=== PATIENT | female | born 1955 | race African-American/Black ===

== ENCOUNTER 2019-10-25 21:48 | Inpatient (IN) | payer OTHER ==
[~2019-10-25] VITALS: Ht 157.5 cm; Wt 49.5 kg
[~2019-10-25 21:48] MED LIST: CIPROFLOXACIN500 M1 PO; DARVOCET-N 1001 EACH PO; FLEXERIL PO; MEDROLDOSEPACK PO; NOHOMEMEDICATIONS; NORCO 5-325 TA1 EACH PO; ZPAK PO
[2019-10-25 21:49] VITALS: BP 115/67
[2019-10-25 22:30] LABS: ABSOLUTE NEUTROPHILS 11.7 thou/uL (1.4-8.2); BASOPHILS 0.7 % (0.0-2.0); EOSINOPHILS 1.4 % (0.0-3.0); HEMATOCRIT 36.3 % (37.0-47.0); HEMOGLOBIN 11.3 gm/dL (12.0-15.0); LYMPHOCYTES 13.9 % (24.0-44.0); MCH 23.5 pg (26.0-34.0); MCHC 31.2 g/dL (28.0-37.0); MCV 75.3 fL (80.0-100.0); MONOCYTES 8.5 % (1.0-8.0); PLATELET COUNT 399 thou/uL (150-400); POLYS 75.5 % (36.0-66.0); RBC 4.82 mil/uL (4.20-5.00); RDW 19.1 % (10.5-14.5); WBC 15.5 thou/uL (4.0-11.0)
[2019-10-25 22:39] LABS: CALCIUM 8.6 mg/dL (8.5-10.1); CREATININE 2.5 mg/dL (0.6-1.0); POTASSIUM 3.2 mmol/L (3.5-5.1)
[2019-10-25 22:49] LABS: ALBUMIN 3.4 g/dL (3.4-5.0); TOTAL BILIRUBIN 0.4 mg/dL (0.2-1.0); TOTAL PROTEIN 8.3 g/dL (6.4-8.2); TROPONIN-I 0.06 ng/mL (<0.06)
[2019-10-26] VITALS (8 sets, daily range): BP systolic 119–149; BP diastolic 75–99
[2019-10-26] MEDS ORDERED: TOPROL XL25 MG PO (01:19)
[2019-10-26] MEDS ORDERED: FUROSEMIDE 40 M40 M1 PO (01:20)
[2019-10-26] MEDS ORDERED: MEGESTROL ACETA40 MG PO (01:21)
[2019-10-26] MEDS ORDERED: OXYCONTIN15 MG PO (01:22)
[2019-10-26 07:02] LABS: HEMATOCRIT 32.8 % (37.0-47.0); HEMOGLOBIN 10.1 gm/dL (12.0-15.0); MCH 23.1 pg (26.0-34.0); MCHC 30.7 g/dL (28.0-37.0); MCV 75.4 fL (80.0-100.0); RBC 4.36 mil/uL (4.20-5.00); RDW 18.8 % (10.5-14.5); WBC 11.8 thou/uL (4.0-11.0)
[2019-10-26 07:15] LABS: ANION GAP 16 mmol/L (7-16); BUN 29 mg/dL (7-18); CALCIUM 8.1 mg/dL (8.5-10.1); CHLORIDE 105 mmol/L (98-107); CO2 17 mmol/L (21-32); GLUCOSE 152 mg/dL (74-106); POTASSIUM 3.9 mmol/L (3.5-5.1); SODIUM 138 mmol/L (136-145); TROPONIN-I 0.07 ng/mL (<0.06)
[2019-10-26 07:28] LABS: CHOLESTEROL 115 mg/dL (<200); HDL CHOLESTEROL 33 mg/dL (>40); LDL CHOLESTEROL 67 mg/dL (<100); TC:HDL 3.5 Ratio (Not establshd); TRIGLYCERIDE 76 mg/dL (<150); VLDL 15 mg/dL (<40)
--- NOTE | 2019-10-26 07:42 | NUR ---
PATIENT CARE WERE ASSUMED AFTER A TRANSFER FROM ED. PATIENT WAS ASSED AND MED REC DONE TO THE BEST OF PATIENTS ABILITY. DAUGHTER IS TO DROP OFF MED LIST TODAY. MS LIGHT SENT FOR MED RECORDS FROM [facility]. WERE THIS PATIENT GETS CHEMO FROM DR. DEEPTI BARRIGA. HOURLY ROUNDS WERE DONE, THE BED IS IN A LOW AND LOCKED POSITION,
--- NOTE | 2019-10-26 08:47 | EKG ---
[facility] [place] [address] ELECTROCARDIOGRAM REPORT Name: TIM LOPEZ Room #: 212- ADM IN M.R.#: [id number] Admission: 10/26/19 Attend Phys: Darin Leija MD Discharge: Date of : 51 Report #: [id number] THIS REPORT FOR: cc: CORDELL Bentley family physician/PCP CORDELL - Sheree family physician/PCP Yoel Mohan MD [facility] THIS REPORT FOR: //name// [facility] ED Test Date: 2019-10-25 Test Time: 22:05:43 Pat Name: TIM LOPEZ Department: Room: [facility] Gender: F Day Care Aide: : 1955 Requested By: Cheko Tinajero Order Number: [id number] MD: Yoel Mohan Measurements Intervals [place] Rate: 136 P: [place]: QRS: 79 QRSD: 77 T: 264 QT: 302 QTc: 455 Interpretive Statements Atrial fibrillation Paired ventricular premature complexes Diffuse ST segment abnormality Compared to ECG 07/30/2015 13:48:20 Ventricular premature complex(es) now present ST segment abnormality is now present Sinus rhythm no longer present Electronically Signed On 10-26-2019 8:46:28 CDT by Yoel Mohan [email or web address] <ELECTRONICALLY SIGNED> By: Yoel Mohan MD, [facility] 10/26/1948 04 04 Yoel Mohan MD, [facility] /EPI
--- NOTE | 2019-10-26 08:50 | EKG ---
[facility] [place] [address] ELECTROCARDIOGRAM REPORT Name: TIM LOPEZ Room #: 212- ADM IN M.R.#: [id number] Admission: 10/26/19 Attend Phys: Darin Leija MD Discharge: Date of : 51 Report #: [id number] THIS REPORT FOR: cc: CORDELL - Sheree family physician/PCP CORDELL - No family physician/PCP Yoel Mohan MD [facility] THIS REPORT FOR: //name// [facility] Test Date: 2019-10-26 Test Time: 07:59:44 Pat Name: TIM LOPEZ Department: Room: 212 Gender: F Security Program Manager: Karissa FAULKNER : 1955 Requested By: Ami Tong Order Number: [id number] MD: Yoel Mohan Measurements Intervals [place] Rate: 100 P: [place]: QRS: 76 QRSD: 92 T: -4 QT: 357 QTc: 461 Interpretive Statements Atrial fibrillation Compared to ECG 07/30/2015 13:48:20 Heart rate has slowed Electronically Signed On 10-26-2019 8:49:21 CDT by Yoel Mohan [email or web address] <ELECTRONICALLY SIGNED> By: Yoel Mohan MD, [facility] 10/26/19 0849 [id number] [id number] Yoel Mohan MD, [facility] /EPI
[2019-10-26] MEDS ORDERED: MORPHINE 110 MG/1 ML PO (11:32)
--- NOTE | 2019-10-26 11:35 | 2DMMODE ---
[facility] [place] [address] 2 D/M-MODE ECHOCARDIOGRAM Name: TIM LOPEZ Room #: 212-P ADM IN M.R.#: [id number] Admission: 10/26/19 Attend Phys: Darin Leija MD Discharge: Date of : 51 Report #: [id number] THIS REPORT FOR: cc: FAM - No family physician/PCP FAM - No family physician/PCP Kehinde Jorge MD ~ APPROVED REPORT Study performed: 10/26/2019 09:29:42 EXAM: Comprehensive 2D, Doppler, and color-flow Echocardiogram Patient Location: Bedside Room #: 212 Status: routine BSA: 1.34 HR: 90 bpm BP: 137/96 mmHg Rhythm: Atrial Fibrillation Other Information Study Quality: Good Indications Aortic Valve Disease Mitral Valve Disease Atrial Fibrillation 2D Dimensions RVDd: 50.02 mm IVSd: 7.44 (7-11mm) LVOT Diam: 14.52 (18-24mm) LVDd: 34.75 mm PWd: 7.26 (7-11mm) Ascending Ao: 28.59 (22-36mm) LVDs: 24.85 (25-40mm) Aortic Root: 25.23 mm IVC: 23.00 mm Volumes Left Atrial Volume (Systole) Single Plane 4CH: 55.23 mL Single Plane 2CH: 37.61 mL LA ESV Index: 38.00 mL/m2 Aortic Valve AoV Peak Leonardo.: 1.65 m/s AO Peak Gr.: 10.93 mmHg LVOT Max P.96 mmHg LVOT Max V: 1.32 m/s [facility] [address] [address] 2 D/M-MODE ECHOCARDIOGRAM Name: TIM LOPEZ Room #: 212-P [facility] IN .#: [id number] Admission: 10/26/19 Attend Phys: Darin Leija MD Discharge: Date of : 51 Report #: [id number] Vmax: 1.32 cm2 AI Vmax: 4.43 m/s AI Hanson: 2.01 m/s2 AI PHT: 638.77 ms Mitral Valve MV Peak Gr.: 22.73 mmHg MV Mean Gr.: 11.16 mmHg MV Max Leonardo.: 2.38 m/s MV Mean Leonardo.: 1.60 m/s MV VTI: 878.97 mm Pulmonary Valve PV Peak Leonardo.: 1.15 m/s PV Peak Gr.: 5.35 mmHg Tricuspid Valve TR Peak Leonardo.: 3.81 m/s TR Peak Gr.: 58.39 mmHg PA Pressure: 68.00 mmHg Left Ventricle The left ventricle is normal size. There is normal LV segmental wall motion. There is normal left ventricular wall thickness. The left ventricular systolic function is normal. The left ventricular ejection fraction is within the normal range. LVEF is 60%. This study is not technically sufficient to allow evaluation of the LV diastolic function due to atrial fibrillation. Right Ventricle Right ventricle is dilated. Right ventricular systolic function is grossly normal. Atria Left atrium is dilated. Right atrium is dilated. Aortic Valve The aortic valve is normal in structure. The Aortic valve is sclerotic. Mild to moderate aortic regurgitation. There is no aortic valvular stenosis. Mitral Valve The mitral valve is normal in structure. Mild to moderate mitral regurgitation. Severe mitral stenosis. Tricuspid Valve The tricuspid valve is normal in structure. There is moderate to [facility] [address] [place] [address] 2 D/M-MODE ECHOCARDIOGRAM Name: JOHNTIM Room #: 212-P [facility] IN ..#: [id number] Admission: 10/26/19 Attend Phys: Darin Leija MD Discharge: Date of : 51 Report #: [id number] severe tricuspid regurgitation. Estimated PAP 68 mmHg. There is moderate-severe pulmonary hypertension. Pulmonic Valve The pulmonary valve is normal in structure. Trace pulmonic regurgitation. Great Vessels The aortic root is normal in size. IVC is dilated and collapses <50% with inspiration. Pericardium There is no pericardial effusion. <Conclusion> The left ventricle is normal size. There is normal left ventricular wall thickness. The left ventricular systolic function is normal. Right ventricle is dilated. Left atrium is dilated. Right atrium is dilated. Mild to moderate aortic regurgitation. Severe mitral stenosis. There is moderate to severe tricuspid regurgitation. Estimated PAP 68 mmHg. <ELECTRONICALLY SIGNED> By: Kehinde Jorge MD 10/26/19 1134 1134 1134 Kehinde Jorge MD /INF
[2019-10-26 15:51] LABS: % SATURATION 6 % (20-39); IRON 26 ug/dL (50-170); TIBC 441 ug/dL (250-450)
--- NOTE | 2019-10-26 20:37 | NUR ---
RECEIVED PT'S CARE AROUND 0735; PT. ON BED; ALERT; DURING AM ASSESSMENT AOX4; FORGETFUL; C/O ABDOMINAL PAIN; NO PRN PAIN MEDICATION DUE; PHYSICIAN NOTIFIED; NO NEW ORDERS; NOTICED NO GI CONSULT ON PLACED; PHYSICIAN NOTIFIED; PT. C/O NAUSEA & VOMITING AFTER AM PO MEDICATION GIVEN; PO MEDICATION NOTICED ON THE VOMINITING; PRN ANTI-NAUSEA GIVEN & PO METOPROLOL GIVEN AGAIN; PT. ABLE TO TOLERATED IT; DURING LUNCH AFTER HAVING SOME CHICKEN BROTH PT. VOMITED; GI NOTIFIED; PRN MEDICATION GIVEN; EDUCATED ABOUT STOOL & URINE SAMPLE; ST. UNDERSTANDING; INCONTINENT OF URINE; NO HAD BM THROUGH THE DAY; BLADDER SCANN SHOWED 30 ML; MONITORING; ASSESSMENT CHARGED; FOLLOWING POC; ISOLATION SET UP & MANTAINED; AFIB ON THE MONITOR; CARDIZEM GTT TITATRE PER PROTOCOL; ELEVATED HR WITH EXERTION; ASSESSMENT CHARGED; FOLLOWING POC;
[2019-10-27 04:56] VITALS: BP 146/69
[2019-10-27 04:58] VITALS: BP 146/69
[2019-10-27 05:05] LABS: HEMATOCRIT 28.8 % (37.0-47.0); HEMOGLOBIN 8.8 gm/dL (12.0-15.0); MCH 23.1 pg (26.0-34.0); MCHC 30.5 g/dL (28.0-37.0); MCV 75.7 fL (80.0-100.0); RBC 3.8 mil/uL (4.20-5.00); RDW 19.1 % (10.5-14.5); WBC 20.2 thou/uL (4.0-11.0)
[2019-10-27 05:26] LABS: CALCIUM 7.7 mg/dL (8.5-10.1); CREATININE 1.5 mg/dL (0.6-1.0); POTASSIUM 3.7 mmol/L (3.5-5.1)
[2019-10-27 05:27] LABS: CHOLESTEROL 90 mg/dL (<200); HDL CHOLESTEROL 38 mg/dL (>40); LDL CHOLESTEROL 42 mg/dL (<100); TC:HDL 2.4 Ratio (Not establshd); TRIGLYCERIDE 53 mg/dL (<150); TROPONIN-I <0.06 ng/mL (<0.06); VLDL 11 mg/dL (<40)
[2019-10-27 05:47] LABS: SERUM ASSESSMENT Clear
--- NOTE | 2019-10-27 06:46 | NUR ---
PATIENTS CARES WERE ASSUMED AT SHIFT CHANGE. PATIENT WAS ASSESSED AND MEDS WERE PASSED. PATIENT A BIT LESS PAINFUL THIS SHIFT THAN LAST. NO STOOL THIS SHIFT. SHE WAS INCONTINENT TWICE. PATIENT IS A WATER DRINKER. WATER FILLED TWICE THIS SHIFT. HOURLY ROUNDS WERE DONE. THE BED IS IN A LOW AND LOCKED POSITION
[2019-10-27 08:00] VITALS: BP 117/78
[2019-10-27 12:00] VITALS: BP 109/77
--- NOTE | 2019-10-27 16:30 | NUR ---
Spoke with with dtr at bedside. SHe reports her mom lives with family in independent home. Her brother resides with patient. Patient independent with ambulation. Patients sister visit and cook and assist patient as needed. She has caregiver support via [facility] 7 days a week 2.5 hours a day. PCP out of [place] but cannot recall PCP name. Patient has supportive care with family. [facility] following for dc planning.
[2019-10-27 16:45] VITALS: BP 107/70
[2019-10-27 20:18] VITALS: BP 100/43
--- NOTE | 2019-10-27 21:20 | NUR ---
RECEIVED PT'S CARE AROUND 0735; PT. ON BED; ALERT; DURING AM ASSESSMENT PT. AOX4; FORGETFUL; C/O PAIN; PRN PAIN MEDICATION GIVEN WITH AM MEDICATIONS; PRN ANTI-NAUSE MEDICATION GIVEN BEFORE PO MEDICATIONS; NO C/O NAUSE OR VOMITING; AFIB ON THE MONITOR CARDIZEM GTT AT 5 ML/H; ENTERPRISE ARCHITECT MANAGER MIXING PICKER TENDER NOTIFIED; ORDERS ON PLACED; PAIN RE-ASSESSMENT ST. NO DECREASE PAIN; PT. LOOKING TENSE & ON FETUS POSITION; PHYSICIAN ON THE FLOOR; NOTIFIED; ORDERS ON PLACED; RE-ASSESSMENT PT. RESTING WITH EYES CLOSED; NO ABLE TO HAVE A BM SINCE ADMISSION; PHYSICIANS NOTIFIED; D/C ISOLATION; SUPPOSITORY ORDERED; GIVEN; NO BM THROUGH THE DAY; C/O BACK PAIN SUDDENLY; FROWN & ON FETUS POSITION; ST. "PLEASE GIVE ME SOMETHING"; PRN PAIN MEDICATION GIVEN; RE- ASSESSMENT PT. ST. DECREASE PAIN; AFTER AROUND ONE HOUR C/O BACK PAIN; NO DUE PRN PAIN MEDICATION; UA NOT COLLECTED ON ER; PHYSICIAN NOTIFIED; ORDERS RECEIVED; ONE TIME PRN PAIN MEDICATION GIVEN; GONE FOR CT; STRAIGH CATH PERFORMED NO URINE RETURNED; PHYSICIAN NOTIFIED; ORDERS RECEIVED; HARRIS INSERTED; NO URINE RETURNED; PHYSICIAN NOTIFIED; PER PHYSICIAN HAD A SECUNDARY NURSE CHECK HARRIS PLACEMENT; SECUNDARY ASSESSMENT PERFORMED; PER SECUNDARY RN HARRIS ON PLACED; US RENAL ON PLACED; PT. GONE FOR PROCEDURE; PER US HARRIS ON PLACED; PRN PAIN MEDICATION GIVEN WHEN RETURNED AT ROOM; DAUGHTER AT THE BED SIDE; CLOSE TO 1800 PT. C/O ABDOMINAL PAIN AFTER HAVING SMALL BITE OF DINNER; PRN MEDICATION NOT DUE; PT. GRIMACING; CRYING; GI PHYSICIAN PAGED X1; NO CALLED BACK; DR. WILLIAMSON PAGED X2; NO CALLED BACK; CONTACTED JOSE MARIA MIXING PICKER TENDER; NOTIFIED ABOUT SITUATION; ORDERS ON PLACED; NEW PRN PAIN MEDICATION GIVEN; INCREASE FLUIDS RATE; REGLAN GIVEN & PEPSID GIVEN; DAUGHTER AT THE BED SIDE AT SHIFT CHANGED; UPDATED; PT. RESTING;
[2019-10-28 08:00] VITALS: BP 85/48
[2019-10-28 11:05] LABS: URINE BLOOD 3+ (Negative); URINE CLARITY CLOUDY; URINE COLOR BROWN; URINE GLUCOSE-RANDOM* NEGATIVE (Negative); URINE KETONES NEGATIVE (Negative); URINE LEUKOCYTES-REFLEX TRACE (Negative); URINE PROTEIN (DIPSTICK) 3+ (Negative); URINE SPECIFIC GRAVITY >= 1.030 (1.005-1.035); URINE UROBILINOGEN 0.2 E.U./dl (0.2-1.0)
[2019-10-28 11:07] LABS: URINE NITRITE-REFLEX POSITIVE (Negative)
[2019-10-28 11:10] LABS: ICTOTEST (BILI CONFIRMATORY) Negative (Negative); URINE BILIRUBIN NEGATIVE (Negative)
[2019-10-28 11:19] VITALS: BP 90/48
[2019-10-28 13:16] LABS: URINE RBC >20 Many /HPF (0-2)
[2019-10-28 13:18] LABS: BACTERIA-REFLEX 1-9 Few /HPF (None Seen); CASTS None Seen /LPF (None Seen); CRYSTALS None Seen /LPF (None Seen); SQUAMOUS 4-10 Moderate /LPF (0-3)
[2019-10-28 13:19] LABS: YEAST-REFLEX Present (None Seen)
[2019-10-28 13:20] LABS: URINE WBC-REFLEX 6-15 Few /HPF (0-5)
[2019-10-28 15:42] LABS: CALCIUM 7.5 mg/dL (8.5-10.1); CREATININE 1.9 mg/dL (0.6-1.0); POTASSIUM 4.3 mmol/L (3.5-5.1)
[2019-10-28 16:27] VITALS: BP 109/72
--- NOTE | 2019-10-28 17:08 | NUR ---
PT CARE ASSUMED APPROX 0700. ASSESSMENTS CHARTED. PT DENIES SOA. REPORTS ADEQUATTE PAIN MANAGEMENT TO MID ABD. BLADDER SCANNED WITH ZERO IN BLADDER. HARRIS PATENT. URINE OUTPUT VERY POOR. DRs AWARE. CT ABD REVEALED ABNORMALITIES. DRs AWARE AND NEW CONSULTS MADE. CLINICAL UPDATE GIVEN TO PT'S DAUGHTER. SHE IS AT THE BEDSIDE AT THIS TIME. PT UP WITH MIN ASSIST. VSS. NO DISTRESS NOTED.
[2019-10-28 20:11] VITALS: BP 92/60
[2019-10-28 23:19] VITALS: BP 104/69
[2019-10-29 04:21] VITALS: BP 117/51
--- NOTE | 2019-10-29 05:01 | NUR ---
ASSUMED CARE OF PATIENT AT 1900. DURING ASSESSMENT PATIENT ABDOMEN TENDER. SLIGHTEST TOUCH TO ABDOMEN MADE PATIENT WINCE. ADMINISTERED PRN DILAUDID ORDERED. PATIENT REPORTED PARTIAL PAIN RELIEF. PATIENT WAS RESTLESS THROUGHOUT NOC. BED ALARM SET OFF SEVERAL TIMES TO FIND PATIENT SITTING ON SIDE OF BED. PATIENT CONFUSED, RESTLESS AND HAD TO BE REORIENTED TO SURROUNDINGS. BURSTS OF TACHYCARDIA NOTED WITH ACTIVITY. REPLACED HARRIS CATHETER DUE TO LEAKING. PATIENT DID HAVE URINE OUTPUT THIS SHIFT WITH INCONTINENCE X2 AND APPROXIMATELY 50 CC FROM HARRIS. PATIENT PROGRESSING SLOWLY TOWARDS GOALS.
[2019-10-29 05:35] LABS: HEMATOCRIT 26.7 % (37.0-47.0); HEMOGLOBIN 8.2 gm/dL (12.0-15.0); MCH 23.2 pg (26.0-34.0); MCHC 30.6 g/dL (28.0-37.0); MCV 75.8 fL (80.0-100.0); RBC 3.52 mil/uL (4.20-5.00); RDW 19.4 % (10.5-14.5); WBC 16.7 thou/uL (4.0-11.0)
[2019-10-29 05:50] LABS: CALCIUM 7.4 mg/dL (8.5-10.1); CREATININE 1.8 mg/dL (0.6-1.0); POTASSIUM 3.4 mmol/L (3.5-5.1)
[2019-10-29 07:27] VITALS: BP 104/57
[2019-10-29 11:35] VITALS: BP 130/83
--- NOTE | 2019-10-29 14:24 | NUR ---
Case discussed with the attending. Dr. Heard consulted to discuss goals of care and code status with the pt and her family. Pt has children and siblings who are very involved. The attending has talked with the pt's dtr regarding her prognosis and advanced cancer. Pt is a full code. Will follow for recommendations from Dr. Heard for possible hospice referral.
--- NOTE | 2019-10-29 16:44 | NUR ---
PT CARE ASSUMED APPROX 0700. ASSESSMENTS CHARTED. PT DENIES SOA. REPORTS 10/ ABD PAIN THIS SHIFT. PAIN MEDS MANAGING PAIN PER PT REPORT. HOSPICE DR CONSULTED. FAMILY AT BEDSIDE FOR HOSPICE EDUCATION. PT'SDAUGHTER AND SON BOTH DENIED QUESTIONS AND CONCERNS REGARDING PT'S POC. NS BOLUSES GIVEN PER ORDER. PT TOLERATING POC. REFUSING TURNS. PT REPORTS THAT SHE "ONLY WANTS TO SLEEP." PT'S DAUGHTER AT BEDSIDE FOR ALL REQUESTS TO TURN PT AND EDUCATION REGARDING NOT TURNING. CLINICAL UPDATE ALSO GIVEN TO PT'S SISTER ON THE PHONE. SHE DENIES QUESTIONS WELL AFTER UPDATE. NO DISTRESS NOTED.
[2019-10-29 17:51] VITALS: BP 89/59
[2019-10-29 19:34] VITALS: BP 120/92
[2019-10-29 20:12] VITALS: BP 131/74
[2019-10-30 04:49] VITALS: BP 123/70
--- NOTE | 2019-10-30 05:20 | NUR ---
ASSUMED CARE OF PATIENT AT 1900. PATIENT REPORTED PAIN AND TENDERNESS IN LOWER ABDOMEN AT ASSESSMENT. ADMINISTERED PRN DILUADID ORDERED. PATIENT SLEPT SPORADICALLY THROUGHOUT NIGHT. PATIENT APPEARED ANXIOUS. DURING ONE EPISODE PATIENT WAS TACHYPNEIC, RESTLESS, AND CONFUSED. PATIENT STATED SHE WAS HAVING A HARD TIME GETTING COMFORTABLE. OXYGEN SATURATION WAS 95%. VSS. ATTEMPTED TO REORIENT PATIENT TO SURROUNDINGS AND REPOSTITIONED PATIENT MULTIPLE TIMES. PATIENT FINALLY APPEARED TO BE RESTING AFTER PAIN MEDICATION ADMINISTERED.
[2019-10-30 06:33] LABS: CALCIUM 7.4 mg/dL (8.5-10.1); CREATININE 1.5 mg/dL (0.6-1.0); PHOSPHORUS 2.4 mg/dL (2.5-4.9); POTASSIUM 3.6 mmol/L (3.5-5.1)
[2019-10-30 07:30] VITALS: BP 114/63
--- NOTE | 2019-10-30 10:50 | NUR ---
ORIENTED TO SELF. DENIES PAIN AND NAUSEA. BUN, CR NOTED. SCANT, TEA COLORED URINE IN HARRIS, 300MM OUT OVERNIGHT. SR WITH PVC PER TELE. FALL PRECAUTIONS IN PLACE. WILL CONTINUE TO FOLLOW CLOSELY.
[2019-10-30 20:30] VITALS: BP 119/71
[2019-10-31 04:45] VITALS: BP 128/69
[2019-10-31 05:48] LABS: ALBUMIN 2.1 g/dL (3.4-5.0); CALCIUM 7.4 mg/dL (8.5-10.1); CREATININE 1.4 mg/dL (0.6-1.0); PHOSPHORUS 2.3 mg/dL (2.5-4.9); POTASSIUM 3.8 mmol/L (3.5-5.1)
[2019-10-31 07:10] VITALS: BP 124/76
--- NOTE | 2019-10-31 08:27 | NUR ---
ASSUME CARE 1900. PT/VITALS STABLE. PT APPEARS VERY DROWSY BUT IS EASILY AROUSABLE. CONSISTENT ABDO PAUN NOTED WITH DILAUDID TO MANAGE PAIN. NO DISTRESS NOTED. NOTED 2 EPISODES OF UNSUSTAINED VTACH RUNS. ASSESMENT CHARTED. PROGRESSING SLOWLY WITH POC. PLAN IS TO CONTINUE TO HYDRATE PT AND MANAGE PAIN. WILL CONITUE TO FOLLOW WITH POC
[2019-10-31 11:35] VITALS: BP 122/73
[2019-10-31 14:03] LABS: BE(vivo) -13.8 mmol/L (-2 to +3); HCO3 10.1 mmol/L (22.0-26.0); PCO2 19.1 mmHg (35.0-45.0); PO2 83.4 mmHg (80.0-100.0); pH 7.343 (7.360-7.450)
[2019-10-31 16:00] VITALS: BP 122/62
--- NOTE | 2019-10-31 17:02 | NUR ---
ASSUMED PATIENT CARE THIS MORNING AT APPROXIMATELY 0700. ASSESSMENT AND MEDS CHARTED. PATIENT ORIENTED TO SELF AND TO PLACE AT TIMES, RECIEVING IV PAIN MEDICATIONS FOR GENERALIZED PAIN. ABGS, CXR TAKEN THIS SHIFT R/T INCREASED NEED FOR O2 AND INCREASED WORK OF BREATHING. SEEN BY DR. SCHWARTZ TODAY, SHE SPOKE WITH PT AND FAMIL REGARDING PLAN OF CARE. MD EDUCATED PATIENT/FAMILY ON DIAGNOSES AND PROGNOSIS FOR PATIENT, STATES THAT KIDNEYS ARE NOT FUCNTIONING AND RELAYED RESULTS OF ABGS, MINIMAL URINE OUTPUT. FAMILY DECIDED TO CHANGE CODE STATUS TO NO CODE THIS SHIFT. PLAN TO CONSULT FOR HOSPICE CARE AT HOME. O2 IN PLACE PER PR FOR COMFORT. DURAGESIC PATCH ALSO ORDERED FOR IMPROVED COMFORT.
[2019-10-31 20:30] VITALS: BP 145/67
[2019-11-01 04:45] VITALS: BP 116/79
[2019-11-01 05:20] LABS: ALBUMIN 1.9 g/dL (3.4-5.0); CALCIUM 7.4 mg/dL (8.5-10.1); CREATININE 1.3 mg/dL (0.6-1.0); PHOSPHORUS 2.1 mg/dL (2.5-4.9)
--- NOTE | 2019-11-01 07:19 | NUR ---
SLEPT MOST OF SHIFT. DILAUDID GIVEN X1 FOR BREAKTHROUGH PAIN. NAUSEATED AND VOMMITTED LARGE AMOUNT BROWN BILE LIQUID. ZOFRAN GIVEN. BED CHANGE X2 AND PARTIAL BATH. AWAITING RETURN OF DAUGHTER TO VISIT. WORKING ON GOALS AND PLAN OF CARE FOR NOC. PROGRESSING TOWARDS POSSIBLE DISCHARGE TO HOSPICE TODAY. CONTINUE TO ASSES CLOSELY.
[2019-11-01 08:00] VITALS: BP 112/70
--- NOTE | 2019-11-01 16:06 | NUR ---
Tenative plan to dc home with Hospice today. Sp with dtr and reviewed hospice philosophy and care at home. Dtr has list to review. She chose [facility] with Hospice. Faxed referral for review. Hospice reviewed and reports accepting but no admit RN this evening. Called dtr to determine if she wants to sp with another hospice agency. Dtr does not she reports she has arranged with Hospice delivery of equiptment at 1200 noon tomorrow and admit RN to be at the home later after equiptment. Dtr reports she herself called another hospice agency on list who also said to dtr it would be better to do tomorrow. Updated phys who agreed to stay this eveing. Updated RN. plan dc to home tomorrow.
--- NOTE | 2019-11-01 17:10 | NUR ---
ASSESSMENT CHARTED. PT ALERT AND ORIENTED X2 WITH FORGETFULNESS. ON PALIATIVE CARE. CHANGED AND REPOSITIONED Q 2 HRS AND NEEDED. DAUGHTER AND SON AT THE BEDSIDE. PLAN TO BE DISCHARGE IN AM WITH HOSPICE CARE. WILL CONTINUE TO MONITOR.
[2019-11-01 20:11] VITALS: BP 134/75
--- NOTE | 2019-11-01 23:59 | NUR ---
0526 DAUGHTER CALLED FOR UPDATE. PATIENT SLEEPING AT PRESENT TIME WITHOUT COMPLAINTS OF NAUSEA OR PAIN.
[2019-11-02 04:46] VITALS: BP 108/61
[2019-11-02 05:39] LABS: ALBUMIN 1.4 g/dL (3.4-5.0); CALCIUM 6.8 mg/dL (8.5-10.1); CREATININE 1.2 mg/dL (0.6-1.0); PHOSPHORUS 2.3 mg/dL (2.5-4.9); POTASSIUM 3.1 mmol/L (3.5-5.1)
--- NOTE | 2019-11-02 06:38 | NUR ---
RESTED QUIETLY MOST OF SHIFT. DID NOT SLEEP MUCH STATING SHE IS ANXIOUS TO GO HOME TODAY. NO PRESENT COMPLAINTS OF PAIN OR NAUSEA. PRN MEDICATIONS GIVEN WITH RELIEF. WORKING ON GOALS AND PLAN OF CARE FOR NOC. PROGRESSING TOWARDS GOALS FOR DISCHARGE HOME TO HOSPICE. ASSIST TO REPOSITION NEEDED FOR COMFORT AND PERICARE PRN. MONITOR CLOSELY.
[2019-11-02 08:00] VITALS: BP 111/74
[2019-11-02 09:38] VITALS: BP 111/74
--- NOTE | 2019-11-02 11:45 | NUR ---
PT TO DC HOME WITH HOSPICE DC ORDERS FAXED BY SAHIL (JACOB) FAMILY NOTIFIED. TRANSPORT ARRANGED BY AMBULANCE ([facility]) FOR 1630 NOTIFIED UNIT AND AMBULANCE FORM ON CHART.
--- NOTE | 2019-11-02 12:48 | NUR ---
RECEIVED PT'S CARE AROUND 0730; PT. ON BED; RESTING WITH EYES CLOSED; EQUAL CHEST RISING NOTICED; DURING AM ASSESSMENT PT. ALERT TO PERSON; ST. "I AM GOING HOME TODAY"; "I NEED YOU TO HELP ME TO GET EVERYTHING TOGETHER"; EDUCATED ABOUT D/C PROCESS; [facility]; NO C/O PAIN; REQUESTED TO BE TURNED; TURNED TO L. SIDE; AM MEDICATION GIVEN; DAUGHTER UPDATE ABOUT PT'S HEALTH & POC; PER DAUGHTER ADMISSION NURSE HOSPICE WILL STOP AROUND 1800 TODAY, 11/02/2019; CIGARETTE CARTON SEALER NOTIFIED; D/C ORDERS ON PLACED; DAUGHTER AT THE BED SIDE; PT. & DAUGHTER UPDATE ABOUT RIDE; PER PT. REQUESTED DAUGHTER IN THE AMBULANCE DUE TO [place]; E COMMERCE MARKETING ANALYST ST. [facility]; WILL COMMUNICATE TO CIGARETTE CARTON SEALER; ASSESSMENT CHARGED; FOLLOWING POC; MONITORING;
[2019-11-02 13:03] VITALS: BP 111/74
[2019-11-02 13:15] VITALS: BP 111/74
[2019-11-02] MEDS ORDERED: MSL20MG/ML SUBLING (14:20)
[2019-11-02] MEDS ORDERED: DURAGESIC1 EACH TRANSDERM (14:20)
[2019-11-02 15:01] VITALS: BP 111/74
--- NOTE | 2019-11-02 16:19 | NUR ---
Patient to discharge to home with hospice today. Admit with Hospice tonight at 6. [place] [id number]. RN aware outside DNR on chart,
--- NOTE | 2019-11-05 15:17 | HC ---
[facility] [place] [address] CONSULTATION Name: TIM LOPEZ Room #: 212-P [facility] IN M.R.#: [id number] Admission: 10/26/19 Attend Phys: Darin Leija MD Discharge: 11/02/19 Date of : 51 Report #: [id number] THIS REPORT FOR: cc: CORDELL Bentley family physician/PCP CORDELL - Sheree family physician/PCP Nhung Evans MD ~ CC: Darin Leija [facility] physician/PCP REASON FOR CONSULTATION: Elevated creatinine. REASON FOR PRESENTATION: Abdominal pain, nausea and vomiting. HISTORY OF PRESENT ILLNESS: The patient is a 64-year-old with history of hyperlipidemia, fibromyalgia, chronic pain syndrome, who presented to the hospital with couple of days' duration of abdominal pain associated with nausea, vomiting and diarrhea. She is very vague on the details. She tells me that she is diagnosed with cervical cancer back in 2016. However, she is in remission. She also tells me that most of her care is usually at [facility]. When the patient presented to the emergency room, she was found to have a creatinine of 2.5 that has been improving and is down to 1.8. She seems to be very confused and lethargic this morning. She received a CT of the chest, abdomen and pelvis, which showed an evidence of colitis with an atrophic left kidney. Ultrasound was consistent with severe left renal atrophy. The patient's creatinine has been trending down. She is currently being treated for her abdominal pain. She ran into some issues with hypertension and is currently maintained on IV fluid. I was consulted to assist with the management of her chronic kidney disease. PAST MEDICAL HISTORY: Obtained from the medical chart as the patient is currently very confused and not able to provide me with the history. 1. Hyperlipidemia. 2. Fibromyalgia. 3. Kidney disease. 4. Status post cholecystectomy. 5. Chronic pain syndrome. 6. Known history of cervical cancer. REVIEW OF SYSTEMS: Unobtainable given the patient's current mental status. FAMILY HISTORY: Unobtainable given the patient's current mental status. SOCIAL HISTORY: Unobtainable given the patient's current mental status. ALLERGIES: None. MEDICATIONS: [facility] [address] [place] [address] CONSULTATION Name: TIM LOPEZ Room #: 212-P [facility] IN [facility].#: [id number] Admission: 10/26/19 Attend Phys: Darin Leija MD Discharge: 11/02/19 Date of : 51 Report #: [id number] 1. Metoprolol. 2. Furosemide. 3. Morphine. PHYSICAL EXAMINATION: GENERAL: The patient is confused, lethargic. VITAL SIGNS: Blood pressure is 117/50, temperature is 36.4. HEAD AND NECK: No jugular venous distention. CHEST: Decreased air entry bilaterally. CARDIOVASCULAR: No rub. ABDOMEN: Soft with diffuse tenderness. EXTREMITIES: Lower extremities, no edema. LABORATORY DATA: Sodium 145, potassium 3.4, BUN is 31, creatinine is 1.8. Calcium is 7.4. ASSESSMENT, IMPRESSION AND PLAN: 1. Acute kidney injury. 2. Chronic kidney disease. 3. Ongoing gastrointestinal illness. The patient has an evidence of chronic kidney disease based on the ultrasound finding with an atrophic left kidney. Recurrent exacerbation of her acute kidney injury is likely related to dehydration and hypotension. She is currently receiving appropriate amount of IV fluid and we will continue with the same. 4. Primary team is investigating the underlying source for her GI illness. 5. Continue with antibiotic accordingly. 6. Avoid nephrotoxins. 7. Continue to follow daily electrolytes. 8. Continue to follow daily urine output. 9. We will continue to follow during her hospital stay. <ELECTRONICALLY SIGNED> By: Nhung Evans MD 11/05/19 1517 0724 0733 Nhung Evans MD /nt
== END 2019-11-02 16:57 | disposition hospice, home (50) | DRG 871 ==
LOC: ER 21:48 → 2N 10-26 00:12 → EROBS 10-26 00:12 → 4W 10-26 00:12 → 2N 10-26 01:15
PROVIDERS: Emergency Medicine; Hospitalist; Internal Medicine; Nurse Practitioner; Nurse Practitioner Adult Health; Nurse Practitioner Family; ADMIT Hospitalist; ATTEND Hospitalist
DX: A41.9 Sepsis, unspecified organism (principal); N17.0 Acute kidney failure with tubular necrosis; E43 Unspecified severe protein-calorie malnutrition; I48.19 Other persistent atrial fibrillation; N82.0 Vesicovaginal fistula; K56.600 Partial intestinal obstruction, unspecified as to cause; E87.0 Hyperosmolality and hypernatremia; Z68.1 Body mass index [BMI] 19.9 or less, adult; A09 Infectious gastroenteritis and colitis, unspecified; E78.00 Pure hypercholesterolemia, unspecified; K59.00 Constipation, unspecified; M79.606 Pain in leg, unspecified; M10.9 Gout, unspecified; E78.5 Hyperlipidemia, unspecified; G89.4 Chronic pain syndrome; C53.9 Malignant neoplasm of cervix uteri, unspecified; M79.7 Fibromyalgia; R13.10 Dysphagia, unspecified; D50.9 Iron deficiency anemia, unspecified; R34 Anuria and oliguria; I12.9 Hypertensive chronic kidney disease with stage 1 through stage 4 chronic kidney disease, or unspecified chronic kidney disease; I05.9 Rheumatic mitral valve disease, unspecified; I95.9 Hypotension, unspecified; N18.3 Chronic kidney disease, stage 3 (moderate); Z66 Do not resuscitate; Z51.5 Encounter for palliative care; R62.51 Failure to thrive (child); Z87.891 Personal history of nicotine dependence; Z79.899 Other long term (current) drug therapy
CPT/HCPCS: 10081; 10194